=== PATIENT | male | born 1990 | race Hispanic/Latino ===

== ENCOUNTER 2019-03-19 03:15 | Emergency (ER) | payer OTHER, SELFPAY ==
[2019-03-19] MEDS ORDERED: LORAZEPAM 1 MG TABLET ONE (03:51)
[2019-03-19 04:20] LABS: Absolute Lymphocytes (CBC) 2.3 K/uL (0.7-4.9); Basophils % 0.6 % (0-1.3); Hematocrit 42.8 % (39.6-49.0); Lymphocytes % 28.9 % (15.3-44.8); MPV 9.4 fL (7.6-11.3); RBC Red Blood Cell Count 4.78 M/uL (4.33-5.43)
[2019-03-19 04:24] LABS: Potassium 3.5 mmol/L (3.5-5.1)
--- NOTE | 2019-03-19 04:47 | EDPHYS ---
Physician Documentation [facility] Name: Alberto Morales Age: 28 yrs Sex: Male : 1990 Arrival Date: 03/19/2019 Time: 03:20 Bed 15 Private MD: Prabhakar Arnold B ED Physician Lyle Sheikh HPI: 03/19 03:50 This 28 yrs old Male presents to ER via Ambulatory with complaints of Anxiety. kdr 03:50 States he has not been able to sleep for the last three nights. States that when he kdr lays down, he feels panicked. Historical: - Allergies: 03:42 No Known Allergies; bb - Home Meds: 03:42 levothyroxine 25 mcg tab 1 tab once daily [Active]; [place] Carbonate Oral [Active]; bb Haloperidol Oral [Active]; Allopurinol Oral [Active]; cholesterol medication [Active]; - PMHx: 03:42 Anxiety; Depression; Schizophrenia; bb - PSHx: 03:42 None; bb - Immunization history:: Adult Immunizations up to date. - Social history:: Smoking status: Patient uses tobacco products, denies chronic smoking, but will smoke occasionally, Patient uses alcohol, occasionally. Patient/guardian denies using street drugs. - Ebola Screening: : No symptoms or risks identified at this time. ROS: 04:48 Constitutional: Negative for fever, chills, and weight loss, Eyes: Negative for injury, kdr pain, redness, and discharge, ENT: Negative for injury, pain, and discharge, Neck: Negative for injury, pain, and swelling, Cardiovascular: Negative for chest pain, palpitations, and edema, Respiratory: Negative for shortness of breath, cough, wheezing, and pleuritic chest pain, Abdomen/GI: Negative for abdominal pain, nausea, vomiting, diarrhea, and constipation, Back: Negative for injury and pain, : Negative for injury, bleeding, discharge, and swelling, MS/Extremity: Negative for injury and deformity, Skin: Negative for injury, rash, and discoloration, Neuro: Negative for headache, weakness, numbness, tingling, and seizure activity. Allergy/Immunology: Negative for hives, rash, and allergies, Endocrine: Negative for neck swelling, polydipsia, polyuria, polyphagia, and marked weight changes, Hematologic/Lymphatic: Negative for swollen nodes, abnormal bleeding, and unusual bruising. 04:48 Psych: Positive for anxiety, insomnia, Negative for depression, drug dependence, auditory hallucinations, visual hallucinations, homicidal ideation, suicide gesture, suicidal ideation. Exam: 04:48 Constitutional: This is a well developed, well nourished patient who is awake, alert, kdr and in no acute distress. Head/Face: Normocephalic, atraumatic. Eyes: Pupils equal round and reactive to light, extra-ocular motions intact. Lids and lashes normal. Conjunctiva and sclera are non-icteric and not injected. Cornea within normal limits. Periorbital areas with no swelling, redness, or edema. Neck: Trachea midline, no thyromegaly or masses palpated, and no cervical lymphadenopathy. Supple, full range of motion without nuchal rigidity, or vertebral point tenderness. No Meningismus. Chest/axilla: Normal chest wall appearance and motion. Nontender with no deformity. No lesions are appreciated. Cardiovascular: Regular rate and rhythm with a normal S1 and S2. No gallops, murmurs, or rubs. Normal PMI, no JVD. No pulse deficits. Respiratory: Lungs have equal breath sounds bilaterally, clear to auscultation and percussion. No rales, rhonchi or wheezes noted. No increased work of breathing, no retractions or nasal flaring. Abdomen/GI: Soft, non-tender, with normal bowel sounds. No distension or tympany. No guarding or rebound. No evidence of tenderness throughout. Back: No spinal tenderness. No costovertebral tenderness. Full range of motion. Skin: Warm, dry with normal turgor. Normal color with no rashes, no lesions, and no evidence of cellulitis. MS/ Extremity: Pulses equal, no cyanosis. Neurovascular intact. Full, normal range of motion. Neuro: Awake and alert, GCS 15, oriented to person, place, time, and situation. Cranial nerves II-XII grossly intact. Motor strength 5/5 in all extremities. Sensory grossly intact. Cerebellar exam normal. Normal gait. Psych: Awake, alert, with orientation to person, place and time. Behavior, mood, and affect are within normal limits. Vital Signs: 03:42 BP 128 / 91; Pulse 79; Resp 16 S; Temp 99(O); Pulse Ox 99% on R/A; Weight 92.53 kg (R); bb Height 5 ft. 9 in. (175.26 cm) (R); Pain /; 04:31 BP 139 / 79; Pulse 60; Pulse Ox 93% on R/A; fu 03:42 Body Mass Index 30.13 (92.53 kg, 175.26 cm) bb MDM: 04:46 Patient medically screened. kdr 04:47 Data reviewed: vital signs, lab test result(s). Counseling: I had a detailed discussion kdr with the patient and/or guardian regarding: the historical points, exam findings, and any diagnostic results supporting the discharge/admit diagnosis, lab results, the need for outpatient follow up. ED course: The patient was resting comfortably and stated that he felt better. 03/19 03:49 Order name: CBC with Diff; Complete Time: 04:43 kdr 03/19 03:49 Order name: Chem 7; Complete Time: 04:43 kdr Administered Medications: 03:56 Drug: Ativan 1 mg Route: PO; bb Disposition: 03/19/19 04:46 Discharged to Home. Impression: Anxiety disorder, unspecified. - Condition is Stable. - Discharge Instructions: Panic Attacks, [id number], Generalized Anxiety Disorder. - Prescriptions for Ativan 1 mg Oral Tablet - take 1 tablet by ORAL route At bedtime As needed; 5 tablet. - Medication Reconciliation Form, Thank You Letter form. - Follow up: Prabhakar Arnold MD; When: 2 - 3 days; Reason: If symptoms return, Further diagnostic work-up, Recheck today's complaints, Continuance of care, Re-evaluation by your physician. - Problem is new. - Symptoms have improved. Signatures: Dispatcher [employer] EDMS Lyle Sheikh MD MD kdr Betty Juarez RN RN bb Wilian Joy RN RN fu Corrections: (The following items were deleted from the chart) 06:05 04:46 03/19/2019 04:46 Discharged to Home. Impression: Anxiety disorder, unspecified. fu Condition is Stable. Forms are Medication Reconciliation Form, Thank You Letter, Antibiotic Education, Prescription Opioid Use. Follow up: Prabhakar Arnold; When: 2 - 3 days; Reason: If symptoms return, Further diagnostic work-up, Recheck today's complaints, Continuance of care, Re-evaluation by your physician. Problem is new. Symptoms have improved. kdr
--- NOTE | 2019-03-19 04:47 | ER ---
Nurse's Notes [facility] Name: Alberto Morales Age: 28 yrs Sex: Male : 1990 Arrival Date: 03/19/2019 Time: 03:20 Bed 15 Private MD: Prabhakar Arnold B Diagnosis: Anxiety disorder, unspecified Presentation: 03/19 03:37 Presenting complaint: Patient states: he thinks he is either having an anxiety attack bb or a panic attack and he is unable to sleep. Transition of care: patient was not received from another setting of care. Onset of symptoms was March 19, 2019. Risk Assessment: Do you want to hurt yourself or someone else? Patient reports no desire to harm self or others. Initial Sepsis Screen: Does the patient meet any 2 criteria? No. Patient's initial sepsis screen is negative. Does the patient have a suspected source of infection? No. Patient's initial sepsis screen is negative. Care prior to arrival: None. 03:37 Method Of Arrival: Ambulatory bb 03:37 Acuity: OSWALDO 4 bb Historical: - Allergies: 03:42 No Known Allergies; bb - Home Meds: 03:42 levothyroxine 25 mcg tab 1 tab once daily [Active]; [place] Carbonate Oral [Active]; bb Haloperidol Oral [Active]; Allopurinol Oral [Active]; cholesterol medication [Active]; - PMHx: 03:42 Anxiety; Depression; Schizophrenia; bb - PSHx: 03:42 None; bb - Immunization history:: Adult Immunizations up to date. - Social history:: Smoking status: Patient uses tobacco products, denies chronic smoking, but will smoke occasionally, Patient uses alcohol, occasionally. Patient/guardian denies using street drugs. - Ebola Screening: : No symptoms or risks identified at this time. Screenin:47 Abuse screen: Denies threats or abuse. Nutritional screening: No deficits noted. bb Tuberculosis screening: No symptoms or risk factors identified. Fall Risk None identified. Assessment: 03:47 General: Appears in no apparent distress. well groomed, Behavior is cooperative, bb restless. Pain: Complains of pain in head Pain currently is 1 out of 10 on a pain scale. Neuro: Level of Consciousness is awake, alert, obeys commands, Oriented to person, place, situation. Cardiovascular: No deficits noted. Respiratory: Respiratory effort is even, unlabored, Respiratory pattern is regular. GI: No deficits noted. No signs and/or symptoms were reported involving the gastrointestinal system. Derm: Skin is pink, warm \T\ dry. Musculoskeletal: Circulation, motion, and sensation intact. 04:08 Reassessment: Patient appears in no apparent distress at this time. Patient and/or ch family updated on plan of care and expected duration. Pain level reassessed. Patient is alert, oriented x 3, equal unlabored respirations, skin warm/dry/pink. 04:35 Reassessment: Patient appears in no apparent distress at this time. resting comfortable fu in bed, equal and unlabored respiration.. Vital Signs: 03:42 BP 128 / 91; Pulse 79; Resp 16 S; Temp 99(O); Pulse Ox 99% on R/A; Weight 92.53 kg (R); bb Height 5 ft. 9 in. (175.26 cm) (R); Pain 1/10; 04:31 BP 139 / 79; Pulse 60; Pulse Ox 93% on R/A; fu 03:42 Body Mass Index 30.13 (92.53 kg, 175.26 cm) bb ED Course: 03:20 Patient arrived in ED. es 03:21 Prabhakar Arnold MD is Private Physician. es 03:34 Lyle Sheikh MD is Attending Physician. kdr 03:39 Triage completed. bb 03:42 Arm band placed on Patient placed in an exam room, on a stretcher, on pulse oximetry. bb 03:47 Patient has correct armband on for positive identification. Bed in low position. Call bb light in reach. Side rails up X 1. Pulse ox on. NIBP on. 03:54 Emily Foster, RN is Primary Nurse. ch 04:01 CBC with Diff Sent. ch 04:45 Prabhakar Arnold MD is Referral Physician. kdr 04:50 No provider procedures requiring assistance completed. Patient did not have IV access fu during this emergency room visit. Administered Medications: 03:56 Drug: Ativan 1 mg Route: PO; bb Outcome: 04:46 Discharge ordered by . kdr 05:45 Discharged to home ambulatory. fu 05:45 Condition: stable 05:45 Discharge instructions given to patient, Instructed on discharge instructions, Demonstrated understanding of instructions, medications. 06:05 Patient left the ED. fu Signatures: Emily Foster RN RN Lyle Sheikh MD MD kdr Salyer, Edna es Ballard, Brenda RN RN Wilian Mary RN RN fu
[2019-03-19 06:10] VITALS: TEMP 99
[2019-03-19 06:11] VITALS: BP 139/79; O2SAT 93
== END 2019-03-19 06:05 | disposition home or self-care (01) ==
LOC: ER 03:15
DX: F41.9 Anxiety disorder, unspecified (principal); Z72.0 Tobacco use
CPT/HCPCS: 36415; 80048; 85025; 99283

== ENCOUNTER 2022-10-09 00:41 | Emergency (ER) | payer OTHER, SELFPAY ==
--- OUTSIDE RECORDS SUMMARY | 2022-10-09 00:44 | XMS REPORT | Continuity of Care Document ---
:1990 Author Organization [facility] t Address [address] [place] [address] [place] [id number] Care Team Providers Name Role Phone [facility] Attending Clinician Unavailable [facility] Admitting Clinician Unavailable Payers Payer Name Policy Type Policy Number Effective Date Expiration Date Eleonora LOPEZ Vladimir STONEY [id number] 2022 FROM [employer] 00:00:00 HEALTH PLAN (HMO) Problems Condition Condition Condition Status Onset Resolution Last Treating Co mments Source Name Details Category Date Date Treatment Clinician Date Schizoaffe Schizoaffe Problem Active 0 [facility] ctive ctive 1-13 Medical disorder Disorder 00:00: 00 Bipolar Bipolar Problem Active 0 [facility] disorder Disorder 1-13 Medica l 00:00: 00 Anxiety Anxiety Problem Active 2022-0 [facility] 1-13 Medical 00:00: 00 Posttrauma Posttrauma Problem Active 2022-0 [facility] tic stress tic Stress 1-13 Me dical disorder Disorder 00:00: 00 Hypothyroi Hypothyroi Problem Active 0 [facility] dism dism 1-13 Medical 00:00: 00 Allergies, Adverse Reactions, Alerts This patient has no known allergies or adverse reactions. Medications Ordered Filled Start Stop Current Ordering Indication Dosage Frequency Signature Comments Components Source Medication Medication Date Date Medication? Clinician (SIG) Name Name Abilify 20 Abilify 20 No 1 Q1D Abilify 20 [facility] mg tablet mg tablet mg tablet Medical Take 1 Take 1 Take 1 tablet tablet tablet every day every day every day by oral by oral by oral route. route. route. lithium lithium No 1capsul BID lithium [facility] via carbonate carbonate e(s) carbonate Medical 300 mg 300 mg 300 mg capsule capsule capsule Take 1 Take 1 Take 1 capsule capsule capsule twice a day twice a day twice a by oral by oral day by route. route. oral route. propranolol propranolol No 1 BID propranolo [facility] 10 mg 10 mg l 10 mg Medical tablet Take tablet Take tablet 1 tablet 1 tablet Take 1 twice a day twice a day tablet by oral by oral twice a route as route as day by needed for needed for oral route 30 days. 30 days. as needed for 30 days. Vital Signs Vital Name Observation Time Observation Value Comments Source Height 2022-06-14 00:00:00 67 [in_i] [facility] BMI (Body Mass Index) 2022-06-14 00:00:00 37.6 kg/m2 [facility] Body Weight 2022-06-14 00:00:00 3840 [oz_av] [facility] Procedures This patient has no known procedures. Encounters Start End Encounter Admission Attending Care Care Encounter Source Date/Time Date/Time Type Type Clinicians Facility Department ID 2022-07-[address] [facility] [id number] [place] 12:58:55 [id number] [place] 2022-05-01 [facility] [id number] [place] 13:24:45 [id number] [place] 2022-03-29 Inpatient [facility] [id number] [place] 11:09:05 [id number] [place] 2022-02-13 [facility] [id number] [place] 17:24:08 [id number] [place] 2022-02-12 Inpatient [facility] [id number] [place] 08:48:21 [id number] [place] 2022-01-25 Inpatient [facility] [id number] [place] 15:43:56 [id number] [place] 2022-06-15 2022-06-15 Outpatient [facility] PRIV PRIV [id number] [facility] 00:00:00 00:00:00 ales_C [id number] Medica l 2022-06-15 2022-06-15 Outpatient [facility] PRIV PRIV [id number] [facility] 00:00:00 00:00:00 ales_C [id number] Medica l 2022-06-14 2022-06-14 Outpatient [facility] PRIV PRIV [id number] [facility] 00:00:00 00:00:00 ales_C [id number] Medica l 2022-06-14 2022-06-14 [facility] [id number] [facility] 00:00:00 00:00:00 [facility] 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 2022-06-12 2022-06-12 Outpatient [facility] PRIV PRIV [id number] [facility] 00:00:00 00:00:00 ales_C [id number] Medica l 2022-06-11 2022-06-11 Outpatient [facility] PRIV PRIV [id number] [facility] 00:00:00 00:00:00 ales_C [id number] Medica l Results This patient has no known results.
[2022-10-09] MEDS ORDERED: LORAZEPAM 1 MG TABLET ONE (01:51)
--- NOTE | 2022-10-09 02:35 | ER ---
Nurse's Notes [facility] Name: Alberto Morales Age: 32 yrs Sex: Male : 1990 Arrival Date: 10/09/2022 Time: 00:41 Bed 5 Private MD: Diagnosis: Insomnia due to other mental disorder;Schizophrenia, unspecified Presentation: 10/09 00:49 Chief complaint: Patient states: "I can't sleep. I am having lots of thoughts. like as6 schizophrenia" pt denies harm to self or others. pt reports he hasn't slept in about 6 days. Coronavirus screen: At this time, the client does not indicate any symptoms associated with coronavirus-19. Ebola Screen: No symptoms or risks identified at this time. Initial Sepsis Screen: Does the patient meet any 2 criteria? No. Patient's initial sepsis screen is negative. Does the patient have a suspected source of infection? No. Patient's initial sepsis screen is negative. Risk Assessment: Do you want to hurt yourself or someone else? Patient reports no desire to harm self or others. Onset of symptoms was October 09, 2022. 00:49 Method Of Arrival: Ambulatory as6 00:49 Acuity: OSWALDO 3 as6 Historical: - Allergies: 00:53 No Known Allergies; as6 - PMHx: 00:53 Anxiety; Depression; Schizophrenia; Sleep apnea; as6 - Immunization history:: Client reports receiving the 2nd dose of the Covid vaccine, moderna. - Social history:: Smoking status: Patient reports the use of cigarette tobacco products, smokes two packs cigarettes per day. Reported history of juuling and/or vaping. Screenin:05 [facility] ED Fall Risk Assessment (Adult) History of falling in the last 3 months, ll3 including since admission No falls in past 3 months (0 pts) Confusion or Disorientation No (0 pts) Intoxicated or Sedated Yes (3 pts) Impaired Gait No (0 pts) Mobility Assist Device Used No (0 pt) Altered Elimination No (0 pt) Score/Fall Risk Level 0 - 2 = Low Risk Maintained a safe environment. Abuse screen: Denies threats or abuse. Nutritional screening: No deficits noted. Tuberculosis screening: No symptoms or risk factors identified. Assessment: 01:05 General: Appears in no apparent distress. comfortable, well groomed, Behavior is calm, ll3 cooperative, anxious, inappropriate for age. Pain: Denies pain. Neuro: Reports DIFFICULTY SLEEPING AND ANXIETY. Vital Signs: 00:49 BP 147 / 88; Pulse 82; Resp 18 S; Temp 97.2(TE); Pulse Ox 96% on R/A; Weight 108.86 kg as6 (R); Height 5 ft. 9 in. (R); Pain 0/10; 02:00 BP 133 / 87; Pulse 70; Resp 20; Pulse Ox 98% ; ll3 02:54 BP 114 / 70; Pulse 68; Resp 17; Pulse Ox 99% ; ll3 00:49 Body Mass Index 35.44 (108.86 kg, 175.26 cm) as6 00:49 Pain Scale: Adult as6 ED Course: 00:46 Patient arrived in ED. ja2 00:49 Emanuel Gutierrez PA is PHCP. cp 00:53 Triage completed. as6 00:54 Arm band placed on. as6 01:01 Emanuel Gutierrez PA is PHCP. cp 01:01 Emanuel Liang MD is Attending Physician. cp 01:05 Patient has correct armband on for positive identification. Bed in low position. Call ll3 light in reach. Side rails up X 1. 01:05 No provider procedures requiring assistance completed. ll3 01:10 Inserted saline lock: 20 gauge in right antecubital area, using aseptic technique. ll3 Blood collected. 01:24 Acetaminophen Sent. ll3 01:24 Basic Metabolic Panel Sent. ll3 01:24 CBC with Diff Sent. ll3 01:24 ETOH Level Sent. ll3 01:24 Hepatic Function Sent. ll3 01:24 PT-INR Sent. ll3 01:24 Ptt, Activated Sent. ll3 01:24 Salicylate Sent. ll3 01:24 Urine Drug Screen Sent. ll3 02:55 Patient did not have IV access during this emergency room visit. ll3 07:00 Chest Single View XRAY In Process Unspecified. EDMS Administered Medications: 01:39 CANCELLED (Physician Discretion): Ativan IVP 1 mg IVP once cp 01:46 Drug: LORazepam PO 2 mg Route: PO; ll3 02:56 Follow up: Response: Marked relief of symptoms ll3 Medication: 01:05 VIS not applicable for this client. ll3 Outcome: 02:34 Discharge ordered by . cp 02:54 Discharged to home ambulatory. ll3 02:54 Condition: improved 02:54 Discharge instructions given to patient, Instructed on discharge instructions, follow up and referral plans. Demonstrated understanding of instructions, follow-up care. 02:56 Patient left the ED. ll3 Signatures: Dispatcher [employer] EDMS Emanuel Gutierrez PA PA cp Alexander, Jessica ja2 Slawson, Ashby, RN RN as6 Khurram Marte RN RN ll3 Corrections: (The following items were deleted from the chart) 00:55 00:49 Chief complaint: Patient states: "I can't sleep. I am having lots of thoughts. as6 like schizophrenia" pt denies harm to self or others as6
--- NOTE | 2022-10-09 02:35 | EDPHYS ---
Physician Documentation [facility] Name: Alberto Morales Age: 32 yrs Sex: Male : 1990 Arrival Date: 10/09/2022 Time: 00:41 Bed 5 Private MD: ED Physician Emanuel Liang HPI: 10/09 01:00 This 32 yrs old Male presents to ER via Ambulatory with complaints of cp Palpitations, Difficulty Sleeping. 01:00 The patient presents with a history of heart racing. cp 01:00 Onset: The symptoms/episode began/occurred today. Duration: The patient or guardian cp reports multiple episodes, that wax and wane. Associated signs and symptoms: Pertinent positives: insomnia for past 6 days, Pertinent negatives: chest pain, fever, SOB, syncope, vomiting. Severity of symptoms: in the emergency department the symptoms are unchanged despite home interventions. Patient reports visual hallucinations of the world ending peacefully. Denies any homicidal and/or suicidal ideations. Historical: - Allergies: 00:53 No Known Allergies; as6 - PMHx: 00:53 Anxiety; Depression; Schizophrenia; Sleep apnea; as6 - Immunization history:: Client reports receiving the 2nd dose of the Covid vaccine, moderna. - Social history:: Smoking status: Patient reports the use of cigarette tobacco products, smokes two packs cigarettes per day. Reported history of juuling and/or vaping. ROS: 01:05 Constitutional: Negative for body aches, chills, fever, poor PO intake. cp 01:05 Eyes: Negative for injury, pain, redness, and discharge. cp 01:05 ENT: Negative for drainage from ear(s), ear pain, sore throat, difficulty swallowing, difficulty handling secretions. 01:05 Cardiovascular: Positive for palpitations, Negative for chest pain. 01:05 Respiratory: Negative for cough, shortness of breath, wheezing. 01:05 Abdomen/GI: Negative for abdominal pain, vomiting, diarrhea, constipation. 01:05 : Negative for urinary symptoms. 01:05 Neuro: Negative for altered mental status, dizziness, headache, syncope, weakness. 01:05 Psych: Positive for anxiety, visual hallucinations, insomnia, Negative for homicidal ideation, suicide gesture, suicidal ideation. 01:05 All other systems are negative. Exam: 01:10 Constitutional: The patient appears in no acute distress, alert, awake, cp non-diaphoretic, non-toxic, well developed, well nourished, obese. 01:10 Head/Face: Normocephalic, atraumatic. cp 01:10 Eyes: Periorbital structures: appear normal, Pupils: equal, round, and reactive to light and accomodation, Extraocular movements: intact throughout, Conjunctiva: normal, no exudate, no injection, Sclera: no appreciated abnormality, Lids and lashes: appear normal, bilaterally. 01:10 ENT: External ear(s): are unremarkable, Nose: is normal, Mouth: Lips: moist, Oral mucosa: pink and intact, moist, Posterior pharynx: is normal, airway is patent, no erythema, no exudate. 01:10 Chest/axilla: Inspection: normal. cp 01:10 Cardiovascular: Rate: normal, Rhythm: regular. 01:10 Respiratory: the patient does not display signs of respiratory distress, Respirations: cp normal, no use of accessory muscles, no retractions, labored breathing, is not present, Breath sounds: are clear throughout, no decreased breath sounds, no stridor, no wheezing. 01:10 Abdomen/GI: Exam negative for discomfort, distension, guarding, Inspection: abdomen appears normal. 01:10 Neuro: Orientation: to person, place \T\ time. Mentation: able to follow commands, Motor: moves all fours, strength is normal, Gait: is steady, at a normal pace, without difficulty. 01:10 Psych: Behavior/mood is pleasant, cooperative, Affect is calm, Patient has no thoughts/intents to harm self or others. 01:45 ECG was reviewed by the Attending Physician. cp Vital Signs: 00:49 BP 147 / 88; Pulse 82; Resp 18 S; Temp 97.2(TE); Pulse Ox 96% on R/A; Weight 108.86 kg as6 (R); Height 5 ft. 9 in. (R); Pain 0/10; 02:00 BP 133 / 87; Pulse 70; Resp 20; Pulse Ox 98% ; ll3 02:54 BP 114 / 70; Pulse 68; Resp 17; Pulse Ox 99% ; ll3 00:49 Body Mass Index 35.44 (108.86 kg, 175.26 cm) as6 00:49 Pain Scale: Adult as6 MDM: 01:01 Patient medically screened. cp 01:30 Differential diagnosis: arrythmia, dehydration, stress disorder, psychotic break, cp suicidal ideation, homicidal ideation. 02:33 Data reviewed: vital signs, nurses notes, lab test result(s), EKG. cp 02:33 I considered the following discharge prescriptions or medication management in the cp emergency department Medications were administered in the Emergency Department. See MAR. Counseling: I had a detailed discussion with the patient and/or guardian regarding: the historical points, exam findings, and any diagnostic results supporting the discharge/admit diagnosis, lab results, to return to the emergency department if symptoms worsen or persist or if there are any questions or concerns that arise at home. 10/09 00:57 Order name: Acetaminophen 3 10/09 00:57 Order name: Basic Metabolic Panel 3 10/09 00:57 Order name: CBC with Diff 3 10/09 00:57 Order name: ETOH Level 3 10/09 00:57 Order name: Hepatic Function 3 10/09 00:57 Order name: PT-INR 3 10/09 00:57 Order name: Ptt, Activated ll3 10/09 00:57 Order name: Salicylate ll3 10/09 00:57 Order name: Urine Drug Screen 3 10/09 00:57 Order name: Chest Single View XRAY 3 10/09 00:55 Order name: EKG; Complete Time: 00:57 cp 10/09 00:55 Order name: EKG - Nurse/Tech; Complete Time: 02:57 10/09 00:57 Order name: IV Saline Lock; Complete Time: 01:24 3 10/09 00:57 Order name: Labs collected and sent; Complete Time: 01:24 ll3 EC:45 Rate is 75 beats/min. Rhythm is regular. IA interval is normal. QRS interval is cp prolonged at 104 msec. QT interval is normal. T waves are Inverted in lead aVR. Interpreted by me. Reviewed by me. Administered Medications: 01:39 CANCELLED (Physician Discretion): Ativan IVP 1 mg IVP once cp 01:46 Drug: LORazepam PO 2 mg Route: PO; ll3 02:56 Follow up: Response: Marked relief of symptoms ll3 Disposition Summary: 10/09/22 02:34 Discharge Ordered Location: Home cp Problem: new cp Symptoms: have improved cp Condition: Stable cp Diagnosis - Insomnia due to other mental disorder cp - Schizophrenia, unspecified cp Followup: cp - With: Private Physician - When: 1 - 2 days - Reason: Recheck today's complaints Discharge Instructions: - Discharge Summary Sheet cp - Insomnia cp - Schizophrenia cp Forms: - Medication Reconciliation Form cp - Thank You Letter cp - Antibiotic Education cp - Prescription Opioid Use cp Signatures: Dispatcher [employer] EDMS mEanuel Gutierrez PA PA cp Bharat Vanegas RN RN as6 Khurram Marte RN RN ll3 Corrections: (The following items were deleted from the chart) 01:39 01:31 Ativan IVP 1 mg IVP once ordered. cp cp
[2022-10-09 03:12] LABS: ALT/SGPT 119 U/L (16-61); AST/SGOT 53 U/L (15-37); Albumin 4.2 g/dL (3.4-5.0); Alkaline Phosphatase 48 U/L (45-117); BUN Blood Urea Nitrogen 17 mg/dL (7-18); Bicarbonate 23 mEq/L (21-32); Bilirubin Direct 0.1 mg/dL (0-0.2); Bilirubin Total 0.7 mg/dL (0.2-1.0); Glomerular Filtration Rate 62 ml/min (=/>90); Glucose Level 113 mg/dL (74-106); Potassium 3.4 mEq/L (3.5-5.1); Protein, Total 7.4 g/dL (6.4-8.2); Sodium Level 135 mEq/L (136-145)
[2022-10-09 03:15] LABS: Barbiturates NEGATIVE (NEGATIVE); Benzodiazepines NEGATIVE (NEGATIVE); Cocaine NEGATIVE (NEGATIVE); METHAMPHETAM NEGATIVE (NEGATIVE); Methadone NEGATIVE (NEGATIVE); Opiates NEGATIVE (NEGATIVE); Phencyclidine NEGATIVE (NEGATIVE); THC Cannibis NEGATIVE (NEGATIVE)
[2022-10-09 04:33] LABS: Absolute Lymphocytes (CBC) 2.1 K/uL (0.7-4.9); Hematocrit 45.3 % (39.6-49.0); Lymphocytes % 27.2 % (15.3-44.8); MCV 93.7 fL (80-100); MPV 9.2 fL (7.6-11.3); RBC Red Blood Cell Count 4.83 M/uL (4.33-5.43)
[2022-10-09 04:34] LABS: Protime INR 0.98
[2022-10-09 07:49] VITALS: TEMP 97.2
[2022-10-09 07:53] VITALS: BP 114/70; O2SAT 99
--- NOTE | 2022-10-09 10:36 | RAD REPORT ---
EXAM DESCRIPTION: RAD - Chest Single View - 10/09/2022 1:09 am CLINICAL HISTORY: CHEST PAIN COMPARISON: None. FINDINGS: Single frontal radiograph view of the chest. Cardiomediastinal silhouette: Normal size and contour. Lungs: No consolidation, pneumothorax, or pleural effusion. Bones: No acute osseous abnormality. Upper abdomen: No abnormality identified. IMPRESSION: 1. No acute pulmonary process identified. Electronically signed by: Ramo Abel 10/09/2022 1:17 AM CDT Due to temporary technical issues with the PACS/Fluency reporting system, reports are being signed by the in house radiologists without review as a courtesy to insure prompt reporting. The interpreting radiologist is fully responsible for the content of the report.
--- NOTE | 2022-10-09 15:58 | EKG ---
Test Date: 2022-10-09 Test Time: 01:42:40 Manager Outreach: DAVID MEASUREMENT RESULTS: Intervals: Rate: 75 WA: 152 QRSD: 104 QT: 400 QTc: 446 [place]: P: 67 WA: 152 QRS: 82 T: 48 INTERPRETIVE STATEMENTS: Normal sinus rhythm Normal ECG Compared to ECG 01/14/2016 19:04:05 Sinus tachycardia no longer present Electronically Signed On 10-09-22 15:56:55 CDT by Yash Bobo
== END 2022-10-09 02:56 | disposition home or self-care (01) ==
LOC: ER 00:41
DX: F51.05 Insomnia due to other mental disorder (principal); F20.9 Schizophrenia, unspecified; F17.210 Nicotine dependence, cigarettes, uncomplicated
CPT/HCPCS: 93005; 85025; 80048; 36415; 85610; 80076; 85730; 80307; 71045; G0480 ×3

== ENCOUNTER 2023-12-10 07:38 | Emergency (ER) | payer OTHER ==
--- OUTSIDE RECORDS SUMMARY | 2023-12-10 07:41 | XMS REPORT | Continuity of Care Document ---
Author Name Unknown Address [address] [facility] [address] th[address] Address [address] [facility] [address] [place] [address] Care Team Providers Care Director Of Oncology Name Role Phone PCP, PATIENT DOES NOT HAVE A Primary Care Physic kyrie Unavailable CORONA RILEY Attending Clinician Unavailable ONESIMO JANE Attending Clinician Unavailable [facility] Attending Clinician Unavailabl e SALVADOR GONSALVES Attending Clinician Unavail able Salvador Mahajan Attending Clinician [phone] [facility] Admitting Clinician Unavailabl e Payers Payer Name Policy Type Policy Number Effective Date Expirati on Date Source [facility] MADDIE MILLARD COPAY FOCUS 9 [id number] 2023 00:00:00 JESSICA LUA FROM [employer] [id number] 2022 00:00:00 Problems Condition Name Condition Details Condition Category Status Onset Date Resolution Date Last Treatment Date Treating Clinician Comments Source Schizoaffe ctive disorder Schizoaffe ctive Disorder Problem Active 06-14 00:00: 00 [facility] Bipolar disorder Bipolar Disorder Problem Active 06-14 00:00: 00 [facility] Anxiety Anxiety Problem Active 06-14 00:00: 00 [facility] Posttrauma tic stress disorder Posttrauma tic Stress Disorder Problem Active 06-14 00:00: 00 [facility] Hypothyroi dism Hypothyroi dism Problem Active 06-14 00:00: 00 [facility] Allergies, Adverse Reactions, Alerts Allergy Name Allergy Type Status Severity Reaction(s) Onset Date Inactive Date Treating Clinician Comments Source No known drug allergy Miscella neous allergy Active 2021-06 00:00: [address] [facility] [place] [place] NO KNOWN ALLERGIE S Drug Class Active [facility] Social History Social Habit Start Date Stop Date Quantity Comments Source Exposure to SARS-CoV-2 (event) Unable to assess [facility] Sex Assigned At 1990 00:00:00 1990 00[birth year]:00 [facility] Smoking Status Start Date Stop Date Source Unknown if ever smoked [facility] Medications Ordered Medication Name Filled Medication Name Start Date Stop Date Current Medication? Ordering Clinician Indication Dosage Frequency Signature (SIG) Comments Components Source No known medications 08-15 19:02: 30 No [facility] Abilify 20 mg tablet Take 1 tablet every day by oral route. Abilify 20 mg tablet Take 1 tablet every day by oral route. No 1 Q1D Abilify 20 mg tablet Take 1 tablet every day by oral route. [facility] lithium carbonate 300 mg capsule Take 1 capsule twice a day by oral route. lithium carbonate 300 mg capsule Take 1 capsule twice a day by oral route. No 1capsul e(s) BID lithium carbonate 300 mg capsule Take 1 capsule twice a day by oral route. [facility] propranolol 10 mg tablet Take 1 tablet twice a day by oral route as needed for 30 days. propranolol 10 mg tablet Take 1 tablet twice a day by oral route as needed for 30 days. No 1 BID propranolo l 10 mg tablet Take 1 tablet twice a day by oral route as needed for 30 days. [facility] Vital Signs Vital Name Observation Time Observation Value Comments S ource Height 2022-06-14 00:00:00 67 [in_i] [facility] BMI (Body Mass Index) 2022-06-14 00:00:00 37.6 kg/m2 [facility] Body Weight 2022-06-14 00:00:00 3840 [oz_av] [facility] Systolic blood pressure 2021-08-16 00:30:00 120 mm[Hg] [facility] Diastolic blood pressure 2021-08-16 00:30:00 66 mm[Hg] [facility] Heart rate 2021-08-16 00:30:00 88 /min [facility] Body temperature 2021-08-16 00:30:00 36.67 Natalia [facility] Respiratory rate 2021-08-16 00:30:00 19 /min [facility] Oxygen saturation in Arterial blood by Pulse oximetry 2021-08-16 00:30:00 97 /min [facility] Body height 2021-08-15 20:33:00 177.8 cm [facility] Body weight 2021-08-15 20:33:00 95.255 kg [facility] BMI 2021-08-15 20:33:00 30.13 kg/m2 [facility] Procedures Procedure Date / Time Performed Performing Clinician Source URINE DRUG (IMMUNOASSAY) - COMPREHENSIVE DRUG SCREEN W/O REFLEX 2021-08-15 20:59:00 [facility] THYROID STIMULATING HORMONE 2021-08-15 20:53:00 [facility] COMP. METABOLIC PANEL (94973) 2021-08-15 20:53:00 Salvador Gonsalves [facility] SALICYLATE 2021-08-15 20:53:00 [facility] ETHANOL 2021-08-15 20:53:00 [facility] CBC WITH DIFF 2021-08-15 20:53:00 [facility] COVID-19 (ID NOW RAPID TESTING) 2021-08-15 20:53:00 [facility] Encounters Start Date/Time End Date/Time Encounter Type Admission Type Attending Clinicians Care Facility Care Department Encounter ID Source 2022-07-18 12:58:55 Inpatient [facility] [id number] [facility] [place] [place] 2022-05-01 13:24:45 Inpatient TEXANA TEXJOSSY [id number] [facility] [place] [place] 2022-03-29 11:09:05 Inpatient TEXJOSSY QUINN [id number] [facility] [place] [place] 2022-02-13 17:24:08 Inpatient TEXANA TEXJOSSY [id number] [facility] [place] [place] 2022-02-12 08:48:21 Inpatient TEXANA TEXJOSSY [id number] [facility] [place] [place] 2022-01-25 15:43:56 Inpatient TEXANA TEXANA [id number] [facility] 2021-07-26 19:46:00 Inpatient INTERNAL TEXANA REFERRAL TEXJOSSY QUINN [id number] [facility] [place] [place] 2023-08-29 14:15:00 2023-08-29 14:15:00 Outpatient CORONA RILEY [id number] [facility] 2023-08-26 08:30:00 2023-08-26 08:30:00 Outpatient UNKNOWN ONESIMO JANE [facility] [id number] [facility] [place] [place] 2022-06-15 00:00:00 2022-06-15 00:00:00 Outpatient [facility] PRIV PRIV [id number] [facility] 2022-06-15 00:00:00 2022-06-15 00:00:00 Outpatient [facility] PRIV PRIV [id number] [facility] 2022-06-14 00:00:00 2022-06-14 00:00:00 Outpatient [facility] PRIV PRIV [id number] [facility] 2022-06-14 00:00:00 2022-06-14 00:00:00 Lala Salas, [employer] SUPERVISOR: [id number] [facility] [address] [place] [id number] , Ph. [facility] [facility] [id number] [facility] 2022-06-12 00:00:00 2022-06-12 00:00:00 Outpatient [facility] [id number] [facility] 2022-06-11 00:00:00 2022-06-11 00:00:00 Outpatient [facility] [id number] [facility] 2021-08-15 15:35:00 2021-08-15 21:18:00 Emergency X SALVADOR GONSALVES [facility] ERT [id number] [facility] 2021-08-15 15:35:00 2021-08-15 21:18:00 Emergency Salvador Gonsalves [facility] [id number] [facility] Results Test Description Test Time Test Comments Results Result Co mments Source [facility] 21:25:46* Test Item Value Reference Range Interpretation Comme nts ACETAMINOP (test code = 4056916020) <10.0 10.0-30.0 L VANNA (test code = VANNA) Toxic: Greater ed n 200 ug/mL @ 4 hour post ingestion or greater than 50 ug/mL @ 12 hour post ingestion Lab Interpretation (test code = 38580-3) [facility]normal [facility] [id number] 21:25:41* Test Item Value Reference Range Interpretation Comme nts ALCOHOL (test code = 5794156840) <10 mg/dL VANNA (test code = VANNA) Toxic Greater than or equal to 80 mg/dL. NOTE: Whole blood values are approximately 10% to 15% lower than serum and plasma. [facility] 21:25:41* Test Item Value Reference Range Interpretation Comme nts SALICYLATE (test code = 2301244164) <10 mg/L VANNA (test code = VANNA) Therapeutic Range: ? Analgesic and Antipyretic Use ? 20-100 mg/L ? ? Anti-Inflammatory Use ? 100-250 mg/L Toxic Range: ? Greater than 300 mg/L [facility] (17641) 2021-08-15 21:21:29* Test Item Value Reference Range Interpretation Comme nts NA (test code = 6648718181) 138 mmol/L 135-145 K (test code = 4754224845) 4.0 mmol/L 3.5-5.0 CL (test code = 2867200775) 105 mmol/L 98-108 CO2 TOTAL (test code = 6272700238) 22 mmol/L 23-31 L AGAP (test code = 1056060268) 2-16 BUN (test code = 8925517805) 16 mg/dL 7-23 GLUCOSE (test code = 8283096077) 128 mg/dL 70-110 H CREATININE (test code = 0640887786) 0.83 mg/dL 0.60-1.25 TOTAL BILI (test code = 9238104578) 1.0 mg/dL 0.1-1.1 CALCIUM (test code = 4026618610) 8.9 mg/dL 8.6-10.6 T PROTEIN (test code = 9501775660) 7.2 g/dL 6.3-8.2 ALBUMIN (test code = 6938314291) 4.7 g/dL 3.5-5.0 ALK PHOS (test code = 0849423418) 42 U/L 34-122 ALTv (test code = 1742-6) 39 U/L 5-50 AST(SGOT) (test code = 3043609047) 35 U/L 13-40 eGFR (test code = 5583708778) mL/min/1.73m2 VANNA (test code = VANNA) Association of Glomerular Filtration Rate (GFR) and Staging of Kidney Disease* + --+ --+ ------+| GFR (mL/min/1.73 m2) ?| With Kidney Damage ?| ?Without Kidney Damage+ --------+ --------+ +| ?>90 ?| ?Stage one ?| ? Normal ?+ ---+ ---+ -------+| ?60-89 ?| ?Stage two ?| ? Decreased GFR ? + --+ --+ ------+| ?30-59 ?| ?Stage three ?| ? Stage three ? + --+ --+ ------+| ?15-29 ?| ?Stage four ? | ? Stage four ?+ ---+ ---+ -------+| ?<15 (or dialysis) ? ?| ?Stage five ? | ? Stage five ?+ ---+ ---+ -------+ *Each stage assumes the associated GFR level has been in effect for at least three months. ?Stages 1 to 5, with or without kidney disease, indicate chronic kidney disease. Notes: Determination of stages one and two (with eGFR >59mL/min/1.73 m2) requires estimation of kidney damage for at least three months as defined by structural or functional abnormalities of the kidney, manifested by either:Pathological abnormalities or Markers of kidney damage (including abnormalities in the composition of the blood or urine or abnormalities in imaging tests). Lab Interpretation (test code = 60667-0) Abnormal [facility] with [id number] 21:12:43* Test Item Value Reference Range Interpretation Comme nts WBC (test code = 6690-2) See_Comment [[employer]] The system which generated this result transmitted reference range: 4.20 - 10.70 10*3/?L. The reference range was not used to interpret this result as normal/abnormal. RBC (test code = 789-8) See_Comment [[employer]] The system which generated this result transmitted reference range: 4.26 - 5.52 10*6/?L. The reference range was not used to interpret this result as normal/abnormal. HGB (test code = 718-7) 15.2 g/dL 12.2-16.4 HCT (test code = 4544-3) 45.1 % 38.4-49.3 MCV (test code = 787-2) 94.2 fL 81.7-95.6 MCH (test code = 785-6) 31.7 pg 26.1-32.7 MCHC (test code = 786-4) 33.7 g/dL 31.2-35.0 RDW-SD (test code = 54659-8) 43.3 fL 38.5-51.6 RDW-CV (test code = 788-0) 12.5 % 12.1-15.4 PLT (test code = 777-3) See_Comment [Automated messa ge] The system which generated this result transmitted reference range: 150 - 328 10*3/?L. The reference range was not used to interpret this result as normal/abnormal. MPV (test code = 15165-0) 10.6 fL 9.8-13.0 NRBC/100 WBC (test code = 9895259883) See_Comment [Automated me ssage] The system which generated this result transmitted reference range: 0.0 - 10.0 /100 WBCs. The reference range was not used to interpret this result as normal/abnormal. NRBC x10^3 (test code = 8009336046) <0.01 See_Comment [Automated me ssage] The system which generated this result transmitted reference range: 10*3/?L. The reference range was not used to interpret this result as normal/abnormal. GRAN MAT (NEUT) % (test code = 770-8) 68.4 % IMM GRAN % (test code = 1338270493) 0.30 % LYMPH % (test code = 736-9) 22.1 % MONO % (test code = 5905-5) 6.9 % EOS % (test code = 713-8) 1.9 % BASO % (test code = 706-2) 0.4 % GRAN MAT x10^3(ANC) (test code = 2248319793) 5.37 10*3/uL 1.99-6.95 IMM GRAN x10^3 (test code = 7550884218) <0.03 0.00-0.06 LYMPH x10^3 (test code = 731-0) 1.73 10*3/uL 1.09-3.23 MONO x10^3 (test code = 742-7) 0.54 10*3/uL 0.36-1.02 EOS x10^3 (test code = 711-2) 0.15 10*3/uL 0.06-0.53 BASO x10^3 (test code = 704-7) 0.03 10*3/uL 0.01-0.09 [facility]"
[2023-12-10 09:28] LABS: Arterial Blood Carboxyhemoglob 3.2 % (0-1.5); Blood Gas Oxyhemoglobin 92.1 % (94-97); Blood Gas THB 15.7 g/dl (12-18)
--- NOTE | 2023-12-10 09:35 | RAD REPORT ---
EXAM DESCRIPTION: Elvin Lopez (2 Views)12/10/2023 9:20 am CLINICAL HISTORY: Cough COMPARISON: Not available FINDINGS: The lungs appear clear of acute infiltrate. The heart is normal size IMPRESSION: No acute abnormalities displayed
--- NOTE | 2023-12-10 09:37 | ER ---
Nurse's Notes Formerly [facility] Name: Alberto Morales Age: 33 yrs Sex: Male : 1990 Arrival Date: 12/10/2023 Time: 07:38 Bed 9 Private MD: Diagnosis: Dyspnea;Dyspnea, unspecified;Cough;Tobacco abuse counseling;Tobacco use-elevated carboxyhemoglobin Presentation: 12/09 08:01 Chief complaint: Patient states: No electricity so he cant sleep. Has trouble breathing ll1 without his CPAP machine. No fever. Coronavirus screen: Client denies travel out of the [place] in the last 14 days. Ebola Screen: Patient denies travel to an Ebola-affected area in the 21 days before illness onset. Initial Sepsis Screen: Does the patient meet any 2 criteria? No. Patient's initial sepsis screen is negative. Does the patient have a suspected source of infection? No. Patient's initial sepsis screen is negative. Risk Assessment: Do you want to hurt yourself or someone else? Patient reports no desire to harm self or others. Onset of symptoms was December 08, 2023. 08:01 Method Of Arrival: Ambulatory ll1 08:01 Acuity: OSWALDO 3 ll1 Triage Assessment: 07:58 General: Appears in no apparent distress. Behavior is calm, cooperative, appropriate ll1 for age. Pain: Complains of pain in face. Neuro: Reports headache not being able to sleep. Respiratory: Reports SOB when he cant use CPAP to sleep. Historical: - Allergies: 07:54 No Known Drug Allergies; ll1 - PMHx: 07:54 Anxiety; Depression; Schizophrenia; Sleep Apnea; ll1 - PSHx: 08:01 hernia repair; ll1 - Immunization history:: Adult Immunizations. - Infectious Disease History:: Denies. - Social history:: Smoking status: Patient reports the use of cigarette tobacco products, smokes one pack cigarettes per day. - Family history:: not pertinent. Screenin:28 [facility] ED Fall Risk Assessment (Adult) History of falling in the last 3 months, ph including since admission No falls in past 3 months (0 pts) Confusion or Disorientation No (0 pts) Intoxicated or Sedated No (0 pts) Impaired Gait No (0 pts) Mobility Assist Device Used No (0 pt) Altered Elimination No (0 pt) Score/Fall Risk Level 0 - 2 = Low Risk Oriented to surroundings, Maintained a safe environment, Hourly rounding (assess needs \T\ fall precautionary measures) done. Abuse screen: Denies threats or abuse. Denies injuries from another. Nutritional screening: No deficits noted. Tuberculosis screening: No symptoms or risk factors identified. Assessment: 09:27 General: Appears in no apparent distress. Behavior is calm, cooperative. Pain: ph Complains of pain in forehead. Neuro: Level of Consciousness is awake, alert, obeys commands, Oriented to person, place, time, situation. Neuro: Reports headache. Cardiovascular: Capillary refill < 3 seconds in bilateral fingers Patient's skin is warm and dry. Respiratory: Airway is patent Respiratory effort is even, unlabored. Respiratory: Reports shortness of breath d/t not being able to use c-pap to sleep. Derm: Skin is pink, warm \T\ dry. Vital Signs: 08:01 BP 140 / 82; Pulse 82; Resp 17; Temp 97.2; Pulse Ox 98% on R/A; Weight 104.33 kg; ll1 Height 5 ft. 8 in. ; Pain 6/10; 09:58 BP 132 / 78; Pulse 81; Resp 18; Temp 97.5; Pulse Ox 99% on R/A; ph 08:01 Body Mass Index 34.97 (104.33 kg, 172.72 cm) ll1 08:01 Pain Scale: Adult ll1 Robin Coma Score: 08:58 Eye Response: spontaneous(4). Motor Response: obeys commands(6). Verbal Response: elizabeth oriented(5). Total: 15. ED Course: 07:42 Patient arrived in ED. im 07:54 Arm band placed on Patient placed in an exam room, on a stretcher. ll1 07:55 Emanuel Liang MD is Attending Physician. elizabeth 07:56 Sharon Ordaz, ASHLEY is Primary Nurse. ph 08:03 Triage completed. ll1 09:02 EKG done, by ED staff, reviewed by Emanuel Liang MD. em1 09:03 PO fluids given. em1 09:20 Chest Pa And Lat (2 Views) XRAY In Process Unspecified. EDMS 09:29 Patient has correct armband on for positive identification. Bed in low position. Call ph light in reach. Pulse ox on. NIBP on. Door closed. Noise minimized. 09:36 Julien Evans MD is Referral Physician. [facility] 09:58 No provider procedures requiring assistance completed. Patient did not have IV access ph during this emergency room visit. Administered Medications: No medications were administered Medication: 09:29 VIS not applicable for this client. ph Outcome: 09:37 Discharge ordered by . [facility] 09:58 Discharged to home ambulatory, ph 09:58 Condition: good 09:58 Discharge instructions given to patient, Instructed on discharge instructions, follow up and referral plans. Provided w/ list of cooling centers Demonstrated understanding of instructions, follow-up care, 09:59 Patient left the ED. ph Signatures: Dispatcher [employer] EDMS Emanuel Liang MD MD cha Martinez, Eric em1 Sharon Ordaz RN RN Nelda Chen RN RN ll1 Alexandria Gates
--- NOTE | 2023-12-10 09:38 | EDPHYS ---
Physician Documentation [facility] Name: Alberto Morales Age: 33 yrs Sex: Male : 1990 Arrival Date: 12/10/2023 Time: 07:38 Bed 9 Private MD: ED Physician Emanuel Liang HPI: 12/09 08:55 This 33 yrs old Male presents to ER via Ambulatory with complaints of Can't elizabeth sleep, abnormal breathing, Headache. 08:55 The patient complains of pain to the forehead. The patient describes the headache as elizabeth aching. 08:56 The patient has shortness of breath at rest, cant sleep , no power. Onset: The elizabeth symptoms/episode began/occurred 2 day(s) ago. The patient's shortness of breath is aggravated by nothing, is alleviated by nothing. Associated signs and symptoms: Pertinent positives: cough. Headache History: Denies prior headaches. Historical: - Allergies: 07:54 No Known Drug Allergies; ll1 - PMHx: 07:54 Anxiety; Depression; Schizophrenia; Sleep Apnea; ll1 - PSHx: 08:01 hernia repair; ll1 - Immunization history:: Adult Immunizations. - Infectious Disease History:: Denies. - Social history:: Smoking status: Patient reports the use of cigarette tobacco products, smokes one pack cigarettes per day. - Family history:: not pertinent. ROS: 08:56 Constitutional: Negative for fever, chills, and weight loss, Eyes: Negative for injury, elizabeth pain, redness, and discharge, ENT: Negative for injury, pain, and discharge, Neck: Negative for injury, pain, and swelling, Cardiovascular: Negative for chest pain, palpitations, and edema, Abdomen/GI: Negative for abdominal pain, nausea, vomiting, diarrhea, and constipation, Back: Negative for injury and pain, : Negative for injury, bleeding, discharge, and swelling, MS/Extremity: Negative for injury and deformity, Skin: Negative for injury, rash, and discoloration, Neuro: Negative for headache, weakness, numbness, tingling, and seizure, Psych: Negative for depression, anxiety, suicide ideation, homicidal ideation, and hallucinations, Allergy/Immunology: Negative for hives, rash, and allergies, Endocrine: Negative for neck swelling, polydipsia, polyuria, polyphagia, and marked weight changes, Hematologic/Lymphatic: Negative for swollen nodes, abnormal bleeding, and unusual bruising, 08:56 Respiratory: Positive for cough, shortness of breath, Exam: 08:56 Constitutional: This is a well developed, well nourished patient who is awake, alert, elizabeth and in no acute distress. Head/Face: Normocephalic, atraumatic. Eyes: Pupils equal round and reactive to light, extra-ocular motions intact. Lids and lashes normal. Conjunctiva and sclera are non-icteric and not injected. Cornea within normal limits. Periorbital areas with no swelling, redness, or edema. ENT: Nares patent. No nasal discharge, no septal abnormalities noted. Tympanic membranes are normal and external auditory canals are clear. Oropharynx with no redness, swelling, or masses, exudates, or evidence of obstruction, uvula midline. Mucous membranes moist. Neck: Trachea midline, no thyromegaly or masses palpated, and no cervical lymphadenopathy. Supple, full range of motion without nuchal rigidity, or vertebral point tenderness. No Meningismus. Chest/axilla: Normal chest wall appearance and motion. Nontender with no deformity. No lesions are appreciated. Cardiovascular: Regular rate and rhythm with a normal S1 and S2. No gallops, murmurs, or rubs. Normal PMI, no JVD. No pulse deficits. Respiratory: Lungs have equal breath sounds bilaterally, clear to auscultation and percussion. No rales, rhonchi or wheezes noted. No increased work of breathing, no retractions or nasal flaring. Abdomen/GI: Soft, non-tender, with normal bowel sounds. No distension or tympany. No guarding or rebound. No evidence of tenderness throughout. Back: No spinal tenderness. No costovertebral tenderness. Full range of motion. Male : Normal genitalia with no discharge or lesions. Skin: Warm, dry with normal turgor. Normal color with no rashes, no lesions, and no evidence of cellulitis. MS/ Extremity: Pulses equal, no cyanosis. Neurovascular intact. Full, normal range of motion. Neuro: Awake and alert, GCS 15, oriented to person, place, time, and situation. Cranial nerves II-XII grossly intact. Motor strength 5/5 in all extremities. Sensory grossly intact. Cerebellar exam normal. Normal gait. Psych: Awake, alert, with orientation to person, place and time. Behavior, mood, and affect are within normal limits. 08:56 Musculoskeletal/extremity: DVT Exam: No signs of deep vein thrombosis. no pain, no swelling, no tenderness, negative Homans' sign noted on exam, no appreciated bluish discoloration, no erythema, no increased warmth, 09:05 ECG was reviewed by the Attending Physician. [facility] Vital Signs: 08:01 BP 140 / 82; Pulse 82; Resp 17; Temp 97.2; Pulse Ox 98% on R/A; Weight 104.33 kg; ll1 Height 5 ft. 8 in. ; Pain 6/10; 09:58 BP 132 / 78; Pulse 81; Resp 18; Temp 97.5; Pulse Ox 99% on R/A; ph 08:01 Body Mass Index 34.97 (104.33 kg, 172.72 cm) ll1 08:01 Pain Scale: Adult ll1 Robin Coma Score: 08:58 Eye Response: spontaneous(4). Motor Response: obeys commands(6). Verbal Response: [facility] oriented(5). Total: 15. MDM: 07:55 Patient medically screened. [facility] 08:58 Antibiotic administration: Not indicated. Immunization status:. Data reviewed: vital [facility] signs, nurses notes, lab test result(s), abg, EKG, radiologic studies. Consideration of Admission/Observation Escalation of care including admission/observation considered. I considered the following discharge prescriptions or medication management in the emergency department Medications were administered in the Emergency Department. See MAR. Care significantly affected by the following chronic conditions: anxiety, depression, schizo, sleep apnea. 12/09 08:50 Order name: ABG: on room air [facility] 12/09 08:50 Order name: Chest Pa And Lat (2 Views) XRAY [facility] 12/09 08:50 Order name: EKG - Nurse/Tech; Complete Time: 09:01 [facility] EC:05 Rate is 67 beats/min. Rhythm is regular. QRS Busby is Normal. OR interval is normal. QRS elizabeth interval is normal. QT interval is normal. No Q waves. T waves are Normal. No ST changes noted. Clinical impression: NSR w/ Non-specific ST/T Changes and No evidence of ischemia. Interpreted by me. Reviewed by me. Administered Medications: No medications were administered Disposition Summary: 12/10/23 09:37 Discharge Ordered Notes: Location: Home elizabeth Problem: new elizabeth Symptoms: have improved elizabeth Condition: Stable elizabeth Diagnosis - Dyspnea elizabeth - Dyspnea, unspecified elizabeth - Cough elizabeth - Tobacco abuse counseling elizabeth - Tobacco use - elevated carboxyhemoglobin elizabeth Followup: elizabeth - With: Private Physician - When: 2 - 3 days - Reason: Recheck today's complaints, Continuance of care, Re-evaluation by your physician Followup: elizabeth - With: Julien Evans MD - When: 2 - 3 days - Reason: Recheck today's complaints, Re-evaluation by your physician Discharge Instructions: - Discharge Summary Sheet elizabeth - Schizophrenia elizabeth - Self-Destructive Behavior elizabeth - Shortness of Breath, Adult elizabeth - Steps to Quit Smoking elizabeth - Health Risks of Smoking elizabeth - Shortness of Breath, Adult, [id number] elizabeth - Cough, Adult, [id number] elizabeth - Cough, Adult elizabeth - Supporting Someone With Schizophrenia elizabeth Forms: - Medication Reconciliation Form elizabeth - Antibiotic Education elizabeth - Prescription Opioid Use elizabeth - Patient Portal Instructions elizabeth - Leadership Thank You Letter elizabeth Signatures: Dispatcher [employer] EDMS Emanuel Liang MD MD cha Lewis, Lynsay, RN RN ll1 Corrections: (The following items were deleted from the chart) 08:51 08:51 Chest Pa And Lat (2 Views)+[email or web address] ordered. EDMS EDMS 08:51 08:51 Arterial Blood Gas+[email or web address].[email or web address] ordered. EDMS EDMS
[2023-12-10 10:11] VITALS: BP 132/78; TEMP 97.5; O2SAT 99
--- NOTE | 2023-12-11 10:57 | EKG ---
Test Date: 2023-12-10 Test Time: 08:58:45 Track Laying Equipment Operator: EAMON MEASUREMENT RESULTS: Intervals: Rate: 67 VT: 152 QRSD: 92 QT: 414 QTc: 437 Jarrell: P: 52 VT: 152 QRS: 67 T: 49 INTERPRETIVE STATEMENTS: Normal sinus rhythm with sinus arrhythmia Normal ECG Compared to ECG 10/09/2022 01:42:40 No significant changes Electronically Signed On 12-11-23 10:54:59 CDT by Yevgeniy Mccormack
== END 2023-12-10 09:59 | disposition home or self-care (01) ==
LOC: ER 07:38
DX: R06.00 Dyspnea, unspecified (principal); R05.9 Cough, unspecified; R79.81 Abnormal blood-gas level; Z72.0 Tobacco use; Z71.6 Tobacco abuse counseling
CPT/HCPCS: 36600; 71046; 82805; 93005; 99283